=== PATIENT | female | born 1990 | race African-American/Black ===

== ENCOUNTER 2023-01-22 05:51 | Emergency (ER) | payer MEDICAID ==
[~2023-01-22] VITALS: Ht 165.1 cm; Wt 77.8 kg
[2023-01-22 05:59] VITALS: O2SAT 100
[2023-01-22 10:21] VITALS: BP 113/64; PULSE 72; RESP 16; TEMP 98.4
== END 2023-01-22 10:21 | disposition home or self-care (01) ==
LOC: ER 05:51
DX: Z48.02 Encounter for removal of sutures (principal); R56.9 Unspecified convulsions; Z88.0 Allergy status to penicillin
CPT/HCPCS: 99281